=== PATIENT | male | born 1960 | race Caucasian/White ===

== ENCOUNTER 2017-06-27 03:55 | Emergency (ER) | payer OTHER ==
[~2017-06-27] VITALS: Ht 177.8 cm; Wt 110.2 kg
--- NOTE | ~2017-06-27 | CR63 ---
[facility]. [facility] A Service of [facility] & [facility] RADIOLOGY TEXT RESULTS PATIENT: DALILA MUNOZ LOCATION: SED : 64 UNIT #: [id number] AGE: [address]: Tenisha Mcpherson MD SEX: M ORDER DR: [id number] [place] [id number] E MR#: [id number] #: [id number] NAME: DALILA MUNOZ : 1960 SEX: M STUDY DATE/TIME: 06/27/2017 04:28 UNIT: SED ROOM: STUDY DESCRIPTION: CR Chest 2 View Attending Physician: Tenisha Mcpherson M.D. Ordering Physician: Tenisha Mcpherson M.D. Primary Care Physician: Nestor Chan M.D. MEDICAL IMAGING REPORT This report is preliminary unless electronic signature is present. EXAM Chest x-ray 06/27 at 04:28 INDICATION Fever, cough, earache, headache, sore throat for 2 days. FINDINGS Two views of the chest were obtained. No comparison. Cardiac and mediastinal contours are normal. There is some linear scarring or atelectasis in the lingula. There is some hazy opacity along the right paratracheal stripe which could reflect a right upper lobe infiltrate. Lungs are otherwise clear. There is no pneumothorax. IMPRESSION Atelectasis or scar in the lingula. Hazy opacity along the right paratracheal stripe could reflect a mild right upper lobe infiltrate. Dictated by... Abraham Quintana Jr., M.D. THIS IS AN ELECTRONICALLY VERIFIED REPORT Abraham Quintana Jr., M.D. at 06/30/2017 7:14 AM SARAI/etta TD: 06/27/2017 10:18 JOB #: [id number] MEDICAL IMAGING REPORT Page 1 of 1
[~2017-06-27 03:55] MED LIST: ANDROGEL1.25 GM TD; LORTAB 7.5-5001 TAB PO; ROBAXIN500 MG PO
== END 2017-06-27 05:02 | disposition home or self-care (01) ==
LOC: SED 03:55
DX: J18.9 Pneumonia, unspecified organism (principal); F17.200 Nicotine dependence, unspecified, uncomplicated; Z90.49 Acquired absence of other specified parts of digestive tract
CPT/HCPCS: 71020; 99283